=== PATIENT | female | born 1985 ===

== ENCOUNTER 2017-09-04 22:15 | Emergency (ER) | payer MEDICAID ==
[2017-09-05] VITALS: BMI 29.2
[2017-09-05 00:18] VITALS: TEMP 98.5
[2017-09-05 04:40] VITALS: BP 117/65; PULSE 110
--- NOTE | 2017-09-05 07:32 | OBDCSUM ---
Datetime: 09/05/2017 00:10 Discharged to, Provider: Other Follow up at, Provider: [facility] Disch Instr Activity: Normal activity Disch Instr Diet: Regular Discharge Time: 09/05/2017 00:10 Follow up in weeks, Provider: September 24, 2017 @ 10:30 am as scheduled Disch Referrals: None Discharge Diagnosis Prov Other: headache 25week
--- NOTE | 2017-09-05 07:32 | OBHP ---
Datetime: 09/05/2017 00:10 IP Adm Impression: , intrauterine ; No Active Labor IP Admit Plan Other: Discharged to ER Admit Comment, IP Provider: IUP at 25w (from [facility]) c/o cold symptoms for 2w. Few days of SCHWARTZ frontal and maxillary areas. Runny/stuff nose. No fevers. No chills. Some body aches. She took T ylenol this AM for relief. She did not feel baby move this weekend beacuse of flu symptoms...but she does feel baby moving no w care: [facility] Undocumented. PMH: denies PSH: denies POBH: x 1 spont Ab x1 TOOPx1 PGYNH: denies STD NKA A:IUP at 25w SCHWARTZ probably sinusitis PLAN: Tylenol now discharge to ER Abdomen - PN: Normal Back - PN: Normal Lungs - PN: Normal Heart - PN: Normal Neurologic - PN: Normal HEENT - PN: Not Done General - PN: Normal Comments, ACOG Physical Exam: HEENT: pain frontal area with palpation IP Hx Assessment: Undocumented EGA AdmitDate IP: 25.1 Vital Signs Provider: Reviewed; Within Normal Limits IP Chief Complaint: Other
== END 2017-09-05 00:15 | disposition home or self-care (01) ==
LOC: H.EROB2 22:15
DX: O26.92 Pregnancy related conditions, unspecified, second trimester (principal); R51 Headache; Z3A.25 25 weeks gestation of pregnancy

== ENCOUNTER 2017-09-05 00:28 | Emergency (ER) | payer MEDICAID ==
[2017-09-05 00:28] VITALS: BMI 29.2
[2017-09-05 01:06] VITALS: BP 119/82; PULSE 111; RESP 16; TEMP 97.5
--- NOTE | 2017-09-05 01:36 | ED PDOC ---
HPI: Headache Additional Complaint(s): 31 yo IUP @24 weeks GA age presents to ED c/o bi-temporal headache, cough, nasal congestion, sinus pressure and pain x 2 weeks. Pt reports subjective fever for 2 days. Denies dyspnea, wheezing, chest pain, dizziness, blurry vision, nausea or vomiting. Pt was seen at [facility] and cleared for any distress. Pt reports headache is better after receiving tylenol in [facility]. OB CARE: Kristen Castle APN (next visit on 09/24/17) <Sultan Triny - Last Filed: 09/05/17 01:48> <Alfonzo Bedolla - Last Filed: 09/05/17 06:51> Time Seen by Provider: 09/05/17 00:52 Chief Complaint (Nursing): Headache Supervising Attending Note - Attestation: I have personally seen and examined this patient.: Yes I have fully participated in the care of the patient.: Yes I have reviewed all pertinent clinical information: Yes <Alfonzo Bedolla - Last Filed: 09/05/17 06:51> Past Medical History Vital Signs: Last Vital Signs Temp 97.5 F L 09/05/17 01:01 Pulse 111 H 09/05/17 01:01 Resp 16 09/05/17 01:01 BP 119/82 09/05/17 01:01 Pulse Ox - Medical History PMH: No Chronic Diseases - Surgical History Surgical History: No Surg Hx - Family History Family History: States: No Known Family Hx - Social History Current smoker - smoking cessation education provided: No Alcohol: None Drugs: Denies - Immunization History Hx Tetanus Toxoid Vaccination: No Hx Influenza Vaccination: No Hx Pneumococcal Vaccination: No <Sultan Triny - Last Filed: 09/05/17 01:48> Vital Signs: Last Vital Signs Temp 97.5 F L 09/05/17 01:01 Pulse 111 H 09/05/17 01:01 Resp 16 09/05/17 01:01 BP 119/82 09/05/17 01:01 Pulse Ox <Alfonzo Bedolla - Last Filed: 09/05/17 06:51> - Home Medications Home Medications: Ambulatory Orders Medication Instructions Recorded Azithromycin [Zithromax] 250 mg PO DAILY #6 tab 11/26/16 Guaifen/Dextromethorphan/PE 1 each PO Q6 #20 tablet 11/26/16 [Mucinex Fast-Max Congest-Cough] Ibuprofen [Motrin] 600 mg PO Q6 PRN #20 tab 11/26/16 Fluticasone Propionate [Flonase] 1 spr NS DAILY #1 bottle 09/05/17 predniSONE [predniSONE Tab] 20 mg PO DAILY #3 tab 09/05/17 - Allergies Allergies/Adverse Reactions: Allergies Allergy/AdvReac Type Severity Reaction Status Date / Time No Known Allergies Allergy Verified 11/26/16 20:44 Review of Systems Constitutional: Negative for: Chills ENT: Positive for: Nose Discharge, Nose Congestion. Negative for: Ear Pain Cardiovascular: Negative for: Chest Pain, Palpitations Respiratory: Positive for: Cough. Negative for: Shortness of Breath, Wheezing Gastrointestinal: Negative for: Nausea, Vomiting Genitourinary Female: Negative for: Dysuria Neurological: Negative for: Weakness, Numbness, Dizziness <TriynWilmore - Last Filed: 09/05/17 01:48> Physical Exam - Physical Exam Appears: Positive for: Non-toxic, No Acute Distress Head Exam: Positive for: ATRAUMATIC, NORMOCEPHALIC Eye Exam: Positive for: Normal appearance, EOMI, PERRL ENT: Positive for: TM Is/Are (has mild effusion, no TM erythema), Sinus Pain/ Drainage (B/L maxillary sinus tenderness.), Nasal Congestion (swelling and erythema of B/L nasal turbinates, ). Negative for: Pharyngeal Erythema, Tonsillar Exudate Neck: Positive for: Normal Cardiovascular/Chest: Positive for: Regular Rate, Rhythm. Negative for: Murmur Respiratory: Positive for: Normal Breath Sounds. Negative for: Crackles, Rales , Wheezing Gastrointestinal/Abdominal: Positive for: Normal Exam, Bowel Sounds, Soft, Other (gravid abdomen). Negative for: Tenderness Extremity: Positive for: Normal ROM Neurologic/Psych: Positive for: Alert, clinical recruiter II-XII, Oriented <[place],Wilmore - Last Filed: 09/05/17 01:48> - Progress ED Course And Treament: Assessment: 31 yo IUP @24 weeks GA presents to ED for headache, nasal congestion, sinus pressure x 2 weeks and subjective fever for 2 days. Plan: Prednisone 20 mg po stat Pt's likely 2/2 has rhinosinusitis. Pt is stable to discharge home. Pt will be discharge home with flonase nasal spray and predonisone 20 mg qd x 3 more days. Advised to return to ED for worsening headache or any focal deficits. Advised to f/u with PMD in 2-3 days. Pt is in agreement with the plan. Case d/w with ED attending Dr. Bedolla <Sultan Triny - Last Filed: 09/05/17 01:48> Disposition - Disposition Disposition Time: 01:49 <Sultan Triny - Last Filed: 09/05/17 01:48> <Alfonzo Bedolla - Last Filed: 09/05/17 06:51> - Clinical Impression Clinical Impression: Sinusitis - Disposition [facility] Condition: STABLE Prescriptions: Fluticasone Propionate [Flonase] 1 spr NS DAILY #1 bottle predniSONE [predniSONE Tab] 20 mg PO DAILY #3 tab Instructions: Rhinosinusitis (ED) Forms: [facility] (Belarusian) Print Language: MONEGASQUE
== END 2017-09-05 02:00 | disposition home or self-care (01) ==
LOC: H.ER 00:28
DX: J32.9 Chronic sinusitis, unspecified (principal); O26.892 Other specified pregnancy related conditions, second trimester; Z3A.24 24 weeks gestation of pregnancy

== ENCOUNTER 2017-11-20 20:49 | Emergency (ER) | payer MEDICAID ==
[2017-11-20 21:07] VITALS: BMI 32.0
[2017-11-20 21:16] VITALS: BP 130/71; PULSE 92; RESP 18; TEMP 98.1
[2017-11-20] MEDS: Lactated Ringer's 1,000 ML IV SCH ×2 (21:30→22:30)
[2017-11-20 23:55] LABS: SQUAMOUS EPITHIAL 9 /hpf (0-5); URINE BACTERIA OCC (<OCC); URINE BILIRUBIN NEGATIVE (NEGATIVE); URINE BLOOD NEGATIVE (NEGATIVE); URINE CLARITY CLOUDY (Clear); URINE COLOR YELLOW (YELLOW); URINE GLUCOSE (UA) NEG (Normal); URINE LEUKOCYTE ESTERASE TRACE Leu/uL (Negative); URINE PROTEIN NEGATIVE (NEGATIVE); URINE UROBILINOGEN 0.2-1.0 mg/dL (0.2-1.0)
--- NOTE | 2017-11-21 20:17 | OBHP ---
Datetime: 11/20/2017 20:08 IP Adm Impression: , intrauterine ; No Active Labor; Intact Membranes IP Admit Plan: Observation/Evaluation; Discharge home Admit Comment, IP Provider: 31-year-old 031 at 35 weeks and 5 days gestational age presents to OB ED complaining of contractions. Patient denies any vaginal bleeding or leakage of fluids. Patient reports good movement. Past medical history none Past surgical history none Medications vitamins No known drug allergies Obstetrical history full-term normal spontaneous vaginal delivery 1 Social history denies tobacco, drugs, alcohol Assessment: 35 weeks gestational age, no evidence of labor at this time. Both maternal well-being and well-being reassuring at this time. Plan: Patient discharged home with labor precautions. Pelvic Type - PN: Adequate Extremities - PN: Normal Abdomen - PN: Normal Back - PN: Normal Breast - PN: Normal Lungs - PN: Normal Heart - PN: Normal Thyroid - PN: Normal Neurologic - PN: Normal HEENT - PN: Normal General - PN: Normal FHR - Baseline A Provider: 140s-150s Contraction Comments Provider: occasional EGA AdmitDate IP: 36.0 Vital Signs Provider: Reviewed; Within Normal Limits IP Chief Complaint: Uterine contractions NICHD Variability Prov Fetus A: Moderate 6-25bpm NICHD Accel Fetus A IP Provider: 15X15 FHR Category Provider Fetus A: Category I NICHD Decel Fetus A IP Provider: None Dilatation, Provider: 1 Effacement, Provider: long Station, Provider: high Genitourinary Exam: Normal DTRs - PN: Normal
== END 2017-11-21 00:20 | disposition home or self-care (01) ==
LOC: H.EROB2 20:49
DX: O47.1 False labor at or after 37 completed weeks of gestation (principal); Z3A.37 37 weeks gestation of pregnancy; O26.93 Pregnancy related conditions, unspecified, third trimester; R10.2 Pelvic and perineal pain
CPT/HCPCS: 81003; 96360; 99283; J7120

== ENCOUNTER 2017-12-09 15:49 | Emergency (ER) | payer MEDICAID, SELFPAY ==
[2017-12-09 17:45] VITALS: BMI 30.4
[2017-12-09 18:22] LABS: BASO % 0.3 % (0.0-2.0); EOS # 0.1 K/uL (0.0-0.7); EOS % 0.8 % (0.0-4.0); HEMOGLOBIN 12.7 g/dL (12.0-16.0); LYMPH # 1.8 K/uL (1.0-4.3); LYMPH % 21.6 % (20.0-40.0); MEAN CELL VOLUME 90.3 fl (81.0-99.0); MEAN CORPUSCULAR HEMOGLOBIN 30.1 pg (27.0-31.0); MEAN CORPUSCULAR HGB CONC 33.3 g/dL (33.0-37.0); MEAN PLATELET VOLUME 9.5 fl (7.2-11.7); MONO # 0.9 K/uL (0.0-0.8); MONO % 10.9 % (0.0-10.0); NEUT # 5.5 K/uL (1.8-7.0); NEUT % 66.4 % (50.0-75.0); NRBC % 0.1 % (0.0-0.0); RBC 4.23 Mil/uL (3.80-5.20); RED CELL DISTRIBUTION WIDTH 14.5 % (11.5-14.5); WHITE BLOOD COUNT 8.3 K/uL (4.8-10.8)
[2017-12-09 18:29] LABS: ALB/GLOB RATIO 0.9 (1.0-2.1); ALBUMIN 3.5 g/dL (3.5-5.0); ALT/SGPT 24 U/L (9-52); AST/SGOT 25 U/L (14-36); BLOOD UREA NITROGEN 5 mg/dl (7-17); CALCIUM 9.1 mg/dL (8.4-10.2); GFR AFRICAN-AMERICAN > 60; GFR NON-AFRICAN AMERICAN > 60; SQUAMOUS EPITHIAL 4 /hpf (0-5); URIC ACID 4.2 mg/Dl (2.2-7.5); URINE BACTERIA OCC (<OCC); URINE BILIRUBIN NEGATIVE (NEGATIVE); URINE BLOOD NEGATIVE (NEGATIVE); URINE CLARITY SLIGHTY-CLOUDY (Clear); URINE COLOR YELLOW (YELLOW); URINE GLUCOSE (UA) NEG (Normal); URINE LEUKOCYTE ESTERASE NEG Leu/uL (Negative); URINE PROTEIN NEGATIVE (NEGATIVE); URINE UROBILINOGEN 0.2-1.0 mg/dL (0.2-1.0)
[2017-12-09 19:21] LABS: BARBITURATES, UR NEGATIVE (NEGATIVE); BENZODIAZEPINES, UR NEGATIVE (NEGATIVE); OPIATES, UR NEGATIVE (NEGATIVE); PHENCYCLIDINE, UR NEGATIVE (NEGATIVE)
[2017-12-10 00:04] VITALS: BP 106/55; PULSE 80
== END 2017-12-09 19:55 | disposition home or self-care (01) ==
LOC: H.EROB2 15:49
DX: O26.93 Pregnancy related conditions, unspecified, third trimester (principal); R51 Headache; R11.0 Nausea; Z3A.36 36 weeks gestation of pregnancy

== ENCOUNTER 2017-12-21 10:28 | Inpatient (IN) | payer MEDICAID, SELFPAY ==
[2017-12-21 11:03] VITALS: BMI 33.2
[2017-12-21] MEDS ORDERED: Lactated Ringer's 1,000 ML IV ONE (12:00)
[2017-12-21 12:34] VITALS: O2SAT 100
[2017-12-21] MEDS ORDERED: Oxytocin 30 units/LR 500ML 30 U/500 ML BAG IV PRN (12:41)
[2017-12-21] MEDS: Lactated Ringer's 1,000 ML IV SCH ×3 (13:00→23:15)
[2017-12-21 13:23] LABS: BASO % 0.5 % (0.0-2.0); EOS # 0.2 K/uL (0.0-0.7); EOS % 1.6 % (0.0-4.0); HEMOGLOBIN 12.8 g/dL (12.0-16.0); LYMPH # 1.9 K/uL (1.0-4.3); LYMPH % 19.4 % (20.0-40.0); MEAN CELL VOLUME 91.3 fl (81.0-99.0); MEAN CORPUSCULAR HEMOGLOBIN 30.7 pg (27.0-31.0); MEAN CORPUSCULAR HGB CONC 33.6 g/dL (33.0-37.0); MEAN PLATELET VOLUME 9.7 fl (7.2-11.7); MONO # 0.9 K/uL (0.0-0.8); MONO % 9.7 % (0.0-10.0); NEUT # 6.6 K/uL (1.8-7.0); NEUT % 68.8 % (50.0-75.0); RBC 4.17 Mil/uL (3.80-5.20); WHITE BLOOD COUNT 9.7 K/uL (4.8-10.8)
[2017-12-21] MEDS ORDERED: Oxytocin 30 units/LR 500ML 30 U/500 ML BAG IV ONE (13:32)
[2017-12-21] MEDS ORDERED: Fentanyl/Bupivacaine HCl 250 ML EPI ONE (15:02)
[2017-12-21] MEDS ORDERED: Bupivacaine HCl 0.25% PF (10 ml) Inj ONE ×2 (15:02→20:00)
--- NOTE | 2017-12-21 17:01 | OBHP ---
Datetime: 12/21/2017 12:09 IP Adm Impression: Term, intrauterine IP Admit Plan: Admit to unit; Initiate labor protocol Extremities - PN: Normal Abdomen - PN: Normal Back - PN: Normal Lungs - PN: Normal Heart - PN: Normal Neurologic - PN: Normal HEENT - PN: Normal General - PN: Normal FHR - Baseline A Provider: 150 Membranes, Provider: Bulging IP Hx Assessment: The History has been Reviewed and is Current EGA AdmitDate IP: 40.1 IP Chief Complaint: Uterine contractions NICHD Variability Prov Fetus A: Moderate 6-25bpm NICHD Accel Fetus A IP Provider: 15X15 Dilatation, Provider: 4 Effacement, Provider: 80 Station, Provider: -2 Genitourinary Exam: Normal Datetime: 12/21/2017 10:59 Admit Comment, IP Provider: 31 yo with IUP at 40.1 weeks gestational age presented to [facility] d ue to vaginal bleeding. Reports having contractions q6 min that started about 2.5 hrs ago, rates pain 10/10 during contraction. Denies loss of fluid and reports good movement. ROS: denies headache, dizziness, chest pain, dyspnea, nausea, vomitting PN - [facility], Dr. Mackey. Has been referred to behavioral health in the past, has seen them and psych OBhx: 1 NVD at [facility] in 2006; 1 SAB at 8 weeks, 2 elective terminations; denies hx abn ormal pap PMH: denies Past Surg hx: denies Social hx: denies tobacco alcohol and drug use Fam hx: denies chronic illnesses in family Allergies: NKDA Meds: PNV SVE: 2-3 cm, 50%, -3 scant blood on gloves after examination ctx q5 min on toco bedside sono vertex presentation Assessment: 31 yo at 40.1 weeks; likely early labor. Plan: continue to monitor and observe; hydrate 1L lactated ringers; assess for cervical changes in 1hr Addendum by resident: SVE done at 1159 - pt progressed to 3-4 cm, 80% effaced, -2 station Will admit to labor and delivery; expectant vaginal delivery Pt examined and discussed w/ Dr. Avani [id number] ob attending addendum: pt seen _ examined by me. agree with above assessment and plan. FHR Category Provider Fetus A: Category I
--- NOTE | 2017-12-21 17:03 | OBADHP ---
Datetime: 12/21/2017 12:09 Admit Comment, IP Provider: 31 yo with IUP at 40.1 weeks gestational age presented to [facility] d ue to vaginal bleeding. Reports having contractions q6 min that started about 2.5 hrs ago, rates pain 10/10 during contraction. Denies loss of fluid and reports good movement. ROS: denies headache, dizziness, chest pain, dyspnea, nausea, vomitting PNC - [facility], Dr. Mackey. Has been referred to behavioral health in the past, has seen them and psych . GBS neg, HbsAg neg, Rubella immune, 3rd trimester HIV neg, 3rd trimester RPR neg, GC/CL neg, ABO-r h A pos, antibody neg. OBhx: 1 NVD at [facility] in 2006; 1 SAB at 8 weeks, 2 elective terminations; denies hx abn ormal pap PMH: denies; records show hx anxiety, depression PTSD; she sees psychiatrist Past Surg hx: denies Social hx: denies tobacco alcohol and drug use Fam hx: denies chronic illnesses in family Allergies: NKDA Meds: PNV SVE: 3-4 cm, 80%, -2 bloody show on gloves ctx q4-5 min on toco bedside sono vertex presentation Assessment/Plan: 31 yo at 40.1 weeks; progressing to active labor. Admit to labor and delivery unit; expectant vaginal delivery. Discussed w/ Dr. Varma. ob attending addendum: pt seen _ examined by me. agree with assessmetn and pln. Extremities - PN: Normal Abdomen - PN: Normal Back - PN: Normal Lungs - PN: Normal Heart - PN: Normal Neurologic - PN: Normal HEENT - PN: Normal General - PN: Normal FHR - Baseline A Provider: 150 Membranes, Provider: Bulging IP Hx Assessment: The History has been Reviewed and is Current IP Chief Complaint: Uterine contractions NICHD Variability Prov Fetus A: Moderate 6-25bpm NICHD Accel Fetus A IP Provider: 15X15 Dilatation, Provider: 4 Effacement, Provider: 80 Station, Provider: -2 Genitourinary Exam: Normal EGA AdmitDate IP: 40.1 IP Adm Impression: Term, intrauterine IP Admit Plan: Admit to unit; Initiate labor protocol Datetime: 12/21/2017 10:59 FHR Category Provider Fetus A: Category I Datetime: 11/20/2017 20:08 Pelvic Type - PN: Adequate Breast - PN: Normal Thyroid - PN: Normal Contraction Comments Provider: occasional Vital Signs Provider: Reviewed; Within Normal Limits NICHD Decel Fetus A IP Provider: None DTRs - PN: Normal Datetime: 09/05/2017 00:10 IP Admit Plan Other: Discharged to ER Comments, ACOG Physical Exam: HEENT: pain frontal area with palpation
[2017-12-22] MEDS ORDERED: Lidocaine 5% Patch TD ONE (01:14)
--- NOTE | 2017-12-22 01:48 | OBHP ---
Datetime: 12/21/2017 12:09 Admit Comment, IP Provider: 31 yo with IUP at 40.1 weeks gestational age presented to [facility] d ue to vaginal bleeding. Reports having contractions q6 min that started about 2.5 hrs ago, rates pain 10/10 during contraction. Denies loss of fluid and reports good movement. ROS: denies headache, dizziness, chest pain, dyspnea, nausea, vomitting PNC - [facility], Dr. Mackey. Has been referred to behavioral health in the past, has seen them and psych . GBS neg, HbsAg neg, Rubella immune, 3rd trimester HIV neg, 3rd trimester RPR neg, GC/CL neg, ABO-r h A pos, antibody neg. OBhx: 1 NVD at [facility] in 2006; 1 SAB at 8 weeks, 2 elective terminations; denies hx abn ormal pap PMH: denies; records show hx anxiety, depression PTSD; she sees psychiatrist Past Surg hx: denies Social hx: denies tobacco alcohol and drug use Fam hx: denies chronic illnesses in family Allergies: NKDA Meds: PNV SVE: 3-4 cm, 80%, -2 bloody show on gloves ctx q4-5 min on toco bedside sono vertex presentation Assessment/Plan: 31 yo at 40.1 weeks; progressing to active labor. Admit to labor and delivery unit; expectant vaginal delivery. Discussed w/ Dr. Varma. ob attending addendum: pt seen _ examined by me. agree with assessmetn and pln. EGA AdmitDate IP: 40.1
[2017-12-22] MEDS ORDERED: Oxycodone/Acetaminophen 5/325 mg Tab PO PRN ×2 (02:52)
[2017-12-22] MEDS ORDERED: Benzocaine/Menthol SPRAY TOP PRN (02:52)
--- NOTE | 2017-12-22 03:26 | OBDS ---
MATERNAL INFORMATION Provider Comments: delivery note dx: term preg; labor pp dx:same; meconium proced ; repair of 2nd deg lacer ob:[place] resident: pgy3 dr sanford ebl: 300cc findings: loose nuchal cord; wt 8lb 13 male; 9_9 neon remained in br w/ pt. LABOR SUMMARY EDC: 12/20/2017 00:00 No. Babies in Womb: 1 LABOR INFORMATION Onset of Labor: 12/21/2017 08:00 Group B Beta Strep: Negative MEMBRANES Membranes Rupture Method: Spontaneous Amniotic Fluid Color: Clear Amniotic Fluid Amount: Moderate VAGINAL DELIVERY Episiotomy: None Laceration Type: Perineal Laceration Repair: Yes Laceration Repair Note: 2nd degree perineal laceration repaired with 3-0 polysorb PRESENTATION/POSITION BABY A Presentation: Cephalic
[2017-12-22] MEDS ORDERED: Lactated Ringer's 1,000 ML IV SCH (05:48)
[2017-12-22] MEDS ORDERED: Oxytocin 30 units/LR 500ML 30 U/500 ML BAG IV PRN (05:48)
[2017-12-22] MEDS: Benzocaine/Menthol SPRAY TOP PRN (06:12)
[2017-12-22] MEDS: Oxycodone/Acetaminophen 5/325 mg Tab PO PRN (14:10)
[2017-12-23 07:20] LABS: HEMOGLOBIN 9.8 g/dL (12.0-16.0); MEAN CELL VOLUME 91.1 fl (81.0-99.0); MEAN CORPUSCULAR HEMOGLOBIN 30.3 pg (27.0-31.0); MEAN CORPUSCULAR HGB CONC 33.2 g/dL (33.0-37.0); RBC 3.24 Mil/uL (3.80-5.20); RED CELL DISTRIBUTION WIDTH 14.8 % (11.5-14.5); WHITE BLOOD COUNT 13.4 K/uL (4.8-10.8)
[2017-12-23] MEDS: Oxycodone/Acetaminophen 5/325 mg Tab PO PRN (08:21)
--- NOTE | 2017-12-23 12:10 | OBPPN ---
Datetime: 12/23/2017 07:34 PP Pain Prov: Within normal limits PP Nausea Prov: Denies PP Flatus Prov: Yes PP BM Prov: No PP Impression Prov: Normal progression PP Plan Prov: Continue present management PP Progress Note Prov: PPD 1 S: 31 y/o female s/p on 12/22/17 evaluated on PPD1. Pt was seen and examined at beds tee this AM. No overnight events. Pt reports mild abdominal pain, but well controlled with pain meds. Ambulating. Complains of left lower foot pain and swelling. Was swollen prior to admission but now s tating she has mild pain when ambulating. Denies any trauma, calf pain. Breast feeding (with formula supplementation) without difficulty. Lochia is similar to menses volume. -Flatus/-BM. Denies fever/c hills, diarrhea, nausea/vomiting, chest pain, dyspnea, and dizziness. Pt declines circumcision for ba by. O: VS: Stable overnight GEN: NAD Cardio: S1S2, no murmurs Lungs: clear breath sounds b/l, no wheezing Abdomen: BS+, appropriate tenderness to palpation. Uterus is firm and at the level of the umbilic us. EXT: Pedal edema +1 pitting BL (L>R), mild tenderness to palpation of lateral aspect of left lower foot ,calves nontender, homans negative, good distal pulses, warm NEURO/PSYCH: AAOx3, no grossly focal deficits, preserved affect and mood. H/H (post ): pending Assessment/Plan: 31 y/o female s/p on 12/22/17, doing well on PPD1. Pt remains afebr ile, tolerating pain with medication. Tolerating diet. Anticipating d/c on 12/24/17. Mild left foot pain and swelling. Will Ice prn and keep elevated. Continue with current management. Social work cons ult pending. Encourage and ambulating Ice left foot prn and keep elevated. Ibuprofen 600mg q6 and Percocet 1 tablet 5-325mg prn for pain for pain Adiam Luc, PGY1 Vital Signs Provider PP: Reviewed; Within Normal Limits
--- NOTE | 2017-12-23 14:10 | CP.PCM.CON ---
History of Present Illness - History of Present Illness History of Present Illness: Psychiatry consult note CC: "I'm sad." HPI: 31 yo female w/ h/o depressed, now , reports that feels sad and anxious. She denies acute ideation to harm herself or her child. No AH/VH/ paranoia/delusions. She reports that she was feeling depressed during her , but did not want to take medications due to concerns that it may harm the child. She reports that she would like to wait until her scheduled appointment on Wednesday to see Dr. Bustos, to determine if she should start medications. Lead Sales Consultant discussed that she may benefit from starting a low dose of Zoloft and reviewed risks of transmission of the medication to the baby during . PPHx: H/o psychiatric admission ~10 years ago at [facility]; h/o 2 prior suicide attempts by OD on pills. Outpatient treatment with Dr. Bustos PMHx: Denies acute medical issues ALL: NKDA SHx: Lives w/ and other child (11 yr old); works at a [employer]; from [facility]; denies drugs/etoh/cig use MSE: A + O x 3, calm, cooperative, good eye contact, psychomotor normal, speech normal; mood "sad", affect- broad/full range; thought process- linear/coherent, thought content- no delusions, no AH/VH/SI/HI, good I/J; good impulse control Impression: 31 yo female w/ depressive disorder. Patient is not an acute danger to herself or others at this time. She would like to wait until her outpatient psychiatry appointment on Wednesday to decide if she wants to start medications for depression. She is psychiatrically stable for discharge at this time and does not require acute inpatient psychiatric admission. Past Patient History - Past Social History Smoking Status: Never Smoked - PSYCHIATRIC Hx Substance Use: No - SURGICAL HISTORY Hx Surgeries: No - ANESTHESIA Hx Anesthesia: No Hx Anesthesia Reactions: No Meds Allergies/Adverse Reactions: Allergies Allergy/AdvReac Type Severity Reaction Status Date / Time No Known Allergies Allergy Verified 12/21/17 12:31 - Medications Medications: Current Medications Benzocaine/Menthol (Dermoplast) 1 sprays TOP PRN PRN PRN Reason: Perineal Discomfort Last Admin: 12/22/17 06:12 Dose: 1 sprays Ibuprofen (Motrin Tab) 600 mg PO Q6 PRN PRN Reason: Pain, Mild (1-3) Last Admin: 12/22/17 20:20 Dose: 600 mg Oxycodone/Acetaminophen (Percocet 5/325 Mg Tab) 1 tab PO Q4 PRN PRN Reason: Pain, moderate (4-7) Stop: 12/25/17 02:53 Last Admin: 12/23/17 08:21 Dose: 1 tab Results - Vital Signs Recent Vital Signs: Last Vital Signs Temp 98.7 F 12/21/17 12:32 Pulse 87 12/21/17 12:32 Resp 18 12/21/17 12:32 BP 116/74 12/21/17 12:32 Pulse Ox 100 12/21/17 12:32 - Labs Result Diagrams: 12/23/17 06:45 Labs: Laboratory Results - last 24 hr 12/23/17 06:45 WBC 13.4 H RBC 3.24 L Hgb 9.8 L D Hct 29.6 L MCV 91.1 MCH 30.3 MCHC 33.2 RDW 14.8 H Plt Count 147
[2017-12-23] MEDS: Benzocaine/Menthol SPRAY TOP PRN (14:43)
--- NOTE | 2017-12-24 08:09 | OBPPN ---
Datetime: 12/24/2017 07:01 PP Pain Prov: Within normal limits PP Nausea Prov: Denies PP Flatus Prov: Yes PP BM Prov: No PP Impression Prov: Normal progression PP Plan Prov: Continue present management PP Progress Note Prov: PPD 2 S: 31 y/o female s/p on 12/22/17 evaluated on PPD2. Pt was seen and examined at beds tee this AM. No overnight events. Pt reports mild abdominal pain, but well controlled with pain meds. Ambulating. States that left lower foot pain has improved, however late last night noticed LEFT leg pain extending from calf down to foot, that is exacerbated with ambulation. Also notices swelling of that leg more than yesterday. Breast feeding (with formula supplementation) without difficulty. Lochi a is similar to menses volume. +Flatus/-BM. Denies fever/chills, diarrhea, nausea/vomiting, chest pa in, dyspnea, and dizziness. Pt declines circumcision for baby. O: VS: 2 episodes tachycardia, 1 low grade temp 100.2 GEN: NAD Cardio: S1S2, no murmurs Lungs: clear breath sounds b/l, no wheezing Abdomen: BS+, appropriate tenderness to palpation. Uterus is firm and at the level of the umbilic us. EXT: pedal edema BL, +1 pitting. Left calf mildly swollen, calf is tender to palpation, no redness or swelling. Extremities warm. Willem inconclusive NEURO/PSYCH: AAOx3, no grossly focal deficits, preserved affect and mood. H/H (post ): 9.8/29.6 Assessment/Plan: 31 y/o female s/p on 12/22/17, doing well on PPD2. Pt remains afebr ile, tolerating pain with medication. Tolerating diet. Complained of LEFT sided calf pain and tendern ess today. Will consider getting an U/S to rule out DVT. Anticipating d/c on 12/24/17. Continue with current management.Evaluated by Psych, stable for D/C. Start po iron today for anemia. Encourage and ambulating Ibuprofen 600mg q6 and Percocet 1 tablet 5-325mg prn for pain for pain Ferrous Sulfate 325 po BID Rachel Calle, PGY1 OB Hospitalist Addendum: Pt seen and examined by me. Agree w/ above. PPD 2 s/p , doing well, b reast and bottle feeding, c/o left calf pain. Pt to have left leg doppler today. Continue current m anagement. (ES) Vital Signs Provider PP: Reviewed; Within Normal Limits Vital Signs Provider Details PP: 2 episodes of tachycardia- 100 1 low grade temp of 100.2
--- NOTE | 2017-12-24 10:23 | US ---
PROCEDURE: Bilateral lower extremity venous duplex Doppler. HISTORY: , b/l leg/calf swelling and pain. COMPARISON: None available. TECHNIQUE: Bilateral common femoral, superficial femoral, popliteal and posterior tibial veins were evaluated. Flow was assessed with color Doppler, compressibility, assessment of phasic flow and augmentation response. FINDINGS: COMMON FEMORAL VEIN: Right CFV: Unremarkable. Left CFV: Unremarkable. SUPERFICIAL FEMORAL VEIN: Right SFV: Unremarkable. Left SFV: Unremarkable. POPLITEAL VEIN: Right Popliteal: Unremarkable. Left Popliteal: Unremarkable. POSTERIOR TIBIAL VEIN: Right PTV: Unremarkable. Left PTV: Unremarkable. OTHER FINDINGS: None. IMPRESSION: No evidence of deep venous thrombosis.
--- NOTE | 2017-12-24 10:54 | OBDCSUM ---
Datetime: 12/24/2017 07:17 Discharged to, Provider: Home Follow up at, Provider: MD Callejas Instr Activity: Normal activity; May be up to bathroom; May be up for meals; May Shower Discharge Instructions, Provider: Routine instructions given Discharge Diagnosis, Provider: Term Delivered Discharge Time: 12/24/2017 10:53 Follow up in weeks, Provider: 4-6 Disch Activity Restrictions: No sexual activity; Nothing in vagina - [place], tampons, douche Discharge Comment, Provider: Diagnosis: 31 y/o female s/p on 12/22/17 : M, 3997g, 9/9 Discharge Instructions: 1. Encourage 2. PNV 1 tab po daily 3. Ferrous Sulfate 325mg BID 4. Ibuprofen 600mg 1 tab prn for mild-mod pain 5. F/U w/ OBGYn 4-6 weeks 6. ER precautions given Contraception after Delivery: Undecided
[2017-12-25 01:50] VITALS: BP 118/65; PULSE 99; RESP 20; TEMP 98.6
== END 2017-12-24 20:30 | disposition home or self-care (01) | DRG 373 ==
LOC: H.EROB2 10:28 → H.L&D 10:45 → H.EROB2 12:03 → H.L&D 12:04 → H.OB/GYN 12-22 02:30
PROVIDERS: ADMIT Obstetrics & Gynecology; ATTEND Obstetrics & Gynecology
PROC: 4A1HXCZ Monitoring of Products of Conception, Cardiac Rate, External Approach (ICD-10-PCS; 2017-12-21)
PROC: 10E0XZZ Delivery of Products of Conception, External Approach (ICD-10-PCS; principal; 2017-12-22)
PROC: 0KQM0ZZ Repair Perineum Muscle, Open Approach (ICD-10-PCS; 2017-12-22)
DX: O69.81X0 Labor and delivery complicated by cord around neck, without compression, not applicable or unspecified (principal); O70.1 Second degree perineal laceration during delivery; O77.0 Labor and delivery complicated by meconium in amniotic fluid; Z37.0 Single live birth; Z3A.40 40 weeks gestation of pregnancy